=== PATIENT | female | born 1965 | race Caucasian/White ===

== ENCOUNTER 2022-01-16 16:43 | Emergency (ER) | payer BC ==
[~2022-01-16] VITALS: Ht 170.2 cm; Wt 83.2 kg
[2022-01-16 16:50] VITALS: BP 166/122
[2022-01-16 17:20] LABS: BASO # 0.05 K/mm3 (0.02-0.10); EOS # 0.13 K/mm3 (0.04-0.40); EOS % 1.2 % (1.0-5.0); HEMATOCRIT 43.4 % (37.0-47.0); HEMOGLOBIN 14.3 g/dL (12.5-16.0); LYMPH# 1.25 K/mm3 (1.50-4.00); MEAN CELL VOLUME 97 fl (78-100); MEAN CORPUSCULAR HEMOGLOBIN 32 pg (27-31); MEAN CORPUSCULAR HGB CONC 33 g/dL (33-37); MONO # 0.73 K/mm3 (0.20-0.80); PLATELET COUNT 345 K/mm3 (130-400); RED BLOOD COUNT 4.47 M/mm3 (4.10-5.30); WHITE BLOOD COUNT 11.2 K/mm3 (4.8-10.8)
[2022-01-16 17:26] LABS: ALBUMIN 4.5 g/dL (3.5-5.0)
[2022-01-16 17:27] LABS: POTASSIUM 4.9 mmol/L (3.5-5.1)
[2022-01-16 17:28] LABS: CALCIUM 9.6 mg/dL (8.3-10.5)
[2022-01-16 17:29] LABS: TOTAL PROTEIN 8.3 g/dL (6.4-8.3)
[2022-01-16 17:31] LABS: TOTAL BILIRUBIN 0.3 mg/dL (0.2-1.2)
[2022-01-16 17:52] LABS: URINE APPEARANCE HAZY; URINE BILIRUBIN NEGATIVE (NEGATIVE); URINE BLOOD 250 ery/uL (NEGATIVE); URINE COLOR YELLOW; URINE GLUCOSE NEGATIVE (NEGATIVE); URINE KETONE NEGATIVE (NEGATIVE); URINE LEUKOCYTE ESTERASE NEGATIVE (NEGATIVE); URINE NITRATE NEGATIVE (NEGATIVE); URINE PROTEIN(semi-quant) NEGATIVE (NEGATIVE); URINE UROBILINOGEN NORMAL (NORMAL)
== END 2022-01-16 20:10 | disposition short-term general hospital (02) ==
LOC: ED 16:43
PROVIDERS: Physician Assistant
DX: K40.90 Unilateral inguinal hernia, without obstruction or gangrene, not specified as recurrent (principal); Z90.49 Acquired absence of other specified parts of digestive tract
CPT/HCPCS: J2270; J2405; J3010; Q9967

== ENCOUNTER → 2022-06-22 | Outpatient (CLI) | payer BC | LOC: RAD 10:30 | DX: S82.832D Other fracture of upper and lower end of left fibula, subsequent encounter for closed fracture with routine healing (principal); X58.XXXD Exposure to other specified factors, subsequent encounter ==